=== PATIENT | female | born 1995 | race Caucasian/White ===

== ENCOUNTER 2023-01-18 15:40 | Emergency (ER) | payer BC, OTHER, SELFPAY ==
--- NOTE | 2023-01-18 15:50 | ED.FEMALEGU ---
HPI - Female Genitourinary General Chief complaint: Urogenital-Female Stated complaint: possible uti Time Seen by Provider: 01/18/23 15:45 Source: patient and RN notes reviewed History of Present Illness HPI Narrative: Patient is a 27-year-old female who presents to urgent care with complaints of 2 day history of hematuria dysuria. Patient states that she has not had a history of UTIs. Denies any use of [id number] medication for symptoms. Denies any fever, nausea, vomiting, low back pain or abdominal pain. No other acute complaints. No acute distress noted. Patient aware of the plan of care. Some parts of this dictation were generated by voice recognition software and may contain typographical and/or grammatical inaccuracies. Related Data Home Medications Medication Instructions Recorded Confirmed aripiprazole 20 mg tablet mg 01/18/23 lithium carbonate 300 mg mg PO 01/18/23 tablet,extended release propranolol 20 mg tablet mg 01/18/23 Allergies Allergy/AdvReac Type Severity Reaction Status Date / Time No Known Allergies Allergy Verified 01/18/23 15:51 Review of Systems Review of Systems: CONSTITUTIONAL: Denies fever, chills, or sweats. EYES: Denies visual changes, redness, or discharge. ENT: Denies rhinorrhea, congestion, sore throat, or otalgia. CARDIOVASCULAR: Denies chest pain, palpitations, or edema. RESPIRATORY: Denies cough or dyspnea. GASTROINTESTINAL: Denies abdominal pain, nausea, vomiting, or diarrhea. GENITOURINARY: Reports dysuria, hematuria SKIN: Denies rash or itching. MUSCULOSKELETAL: Denies back pain, joint pain, or myalgia. NEUROLOGIC: Denies headache, numbness, or weakness. All other systems reviewed are negative, except as documented in HPI. PMFSH Comments At the time of my signature, I reviewed and agree with the nursing past medical, surgical, social, and family history. There is no relevant family history pertinent to the patient complaint. Exam Narrative: GENERAL: This is a well-nourished, well-developed patient, in no apparent distress. HEAD: normocephalic, atraumatic. EYES: PERRL. Sclera clear/white. Vision is grossly intact. EARS: External ears normal NOSE: External nose normal with no obvious nasal discharge, nares without redness, no rhinorrhea. THROAT: Mucous membranes moist NECK: Neck supple GASTROINTESTINAL: Abdomen soft, non-tender, nondistended. Bowel sounds are active. SKIN: warm, intact with no suspicious lesions or rash, good texture and turgor. NEURO: awake, alert, and oriented to person, place and time. There were no obvious focal neurologic abnormalities. EXTREMITIES: No clubbing, cyanosis, or edema. BACK: Negative bilateral CVA tenderness Course Course Level of Care: Express Care Visit Vital Signs Vital signs: Vital Signs Temperature 98.6 F 01/18/23 15:52 Pulse Rate 80 01/18/23 15:52 Respiratory Rate 16 01/18/23 15:52 Blood Pressure 128/73 01/18/23 15:52 Pulse Oximetry 100 01/18/23 15:52 Oxygen Delivery Room Air 01/18/23 15:52 Temperature 98.6 F 01/18/23 15:52 Pulse Rate 80 01/18/23 15:52 Respiratory Rate 16 01/18/23 15:52 Blood Pressure 128/73 01/18/23 15:52 Pulse Oximetry 100 01/18/23 15:52 Oxygen Delivery Room Air 01/18/23 15:52 Reviewed MDM - Female Genitourinary MDM Narrative Medical decision making narrative: Reviewed lab results with the patient. She is aware that her urinalysis is indicative of urinary tract infection showing both bacteria and blood. Advised patient complete the oral antibiotic regimen as prescribed. Be sure to eat and drink with medication. If your symptoms progressed with increasing amounts of blood, nausea, vomiting, fever, abdominal pain or low back pain-go to the emergency room. We will culture the urine and call only if medication changes necessary, based on culture results. Increase your water intake and avoid sugary and caffeinated drinks. Use the Pyridium
[2023-01-18 15:52] VITALS: BP 128/73; PULSE 80; RESP 16; TEMP 37; O2SAT 100
== END 2023-01-18 16:17 | disposition home or self-care (01) ==
PROVIDERS: Emergency Provider Nurse Practitioner Family
DX: N39.0 Urinary tract infection, site not specified (principal); F31.9 Bipolar disorder, unspecified
CPT/HCPCS: 81003; 87077; 87086; 87186; 99213; G0463